=== PATIENT | female | born 2000 | race Two or more races ===

== ENCOUNTER 2018-05-18 17:00 | Emergency (ER) | payer SELFPAY ==
[~2018-05-18] VITALS: Ht 160 cm; Wt 49.9 kg
--- NOTE | 2018-05-18 17:06 | Emergency Room Report ---
History of Present Illness General Chief Complaint: Overdose Source: Patient (Maxwell Viveros DO) Present Illness HPI Patient was brought in by paramedics Reported methamphetamine overdose Patient upon arrival is awake Reports that this has happened to her before and she is somewhat embarrassed Denies any chest pain She was thirsty Denies any headache denies any abdominal pain Patient had some palpitation sensation as well (MariloubraulioMaxwell MIRANDA) Allergies: Coded Allergies: No Known Allergies (Unverified , 05/18/18) Patient History Past Medical History: see triage record Pertinent Family History: none Now: No - Unknown Reviewed Nursing Documentation: PMH: Agreed; PSxH: Agreed (MarilouMaxwell ramsey DO) Nursing Documentation-PMH Past Medical History: No History, Except For History Of Psychiatric Problem: Yes - Schizo, Anxiety, Bipolar, Depression (RupertoMaxwell vargas DO) Review of Systems All Other Systems: negative except mentioned in HPI (MariloubraulioMaxwell MIRANDA) Physical Exam Vital Signs Date Time Temp Pulse Resp B/P (MAP) Pulse Ox O2 Delivery O2 Flow Rate FiO2 05/18/18 16:47 130 20 127/68 98 Room Air Sp02 EP Interpretation: reviewed, normal General Appearance: well appearing, no apparent distress Head: normocephalic, atraumatic Eyes: bilateral eye PERRL, bilateral eye EOMI ENT: normal pharynx, no angioedema Neck: supple Respiratory: lungs clear Cardiovascular #1: no JVD, no murmur, tachycardia Gastrointestinal: non tender, soft Musculoskeletal: normal inspection Neurologic: alert, oriented x3 Skin: normal color, no rash Lymphatic: no adenopathy (MarilouMaxwell ramsey ) Medical Decision Making Diagnostic Impression: Primary Impression: Drug overdose ER Course Patient continues to feel better throughout her stay At this time nausea has improved Patient is awake alert appropriate reports that her sister lives close by Patient allowed to sober and rest further And will have final disposition after further resolution and improvement Labs Test 05/18/18 17:08 05/18/18 17:29 White Blood Count 13.2 K/UL (4.8-10.8) Red Blood Count 3.59 M/UL (4.20-5.40) Hemoglobin 10.6 G/DL (12.0-16.0) Hematocrit 30.6 % (37.0-47.0) Mean Corpuscular Volume 85 FL (80-99) Mean Corpuscular Hemoglobin 29.5 PG (27.0-31.0) Mean Corpuscular Hemoglobin Concent 34.6 G/DL (32.0-36.0) Red Cell Distribution Width 12.1 % (11.6-14.8) Platelet Count 474 K/UL (150-450) Mean Platelet Volume 6.8 FL (6.5-10.1) Neutrophils (%) (Auto) 79.2 % (45.0-75.0) Lymphocytes (%) (Auto) 13.2 % (20.0-45.0) Monocytes (%) (Auto) 5.4 % (1.0-10.0) Eosinophils (%) (Auto) 0.8 % (0.0-3.0) Basophils (%) (Auto) 1.4 % (0.0-2.0) Sodium Level 142 MMOL/L (136-145) Potassium Level 2.9 MMOL/L (3.5-5.1) Chloride Level 103 MMOL/L (98-107) Carbon Dioxide Level 23 MMOL/L (21-32) Anion Gap 16 mmol/L (5-15) Blood Urea Nitrogen 20 mg/dL (7-18) Creatinine 1.1 MG/DL (0.55-1.30) Estimat Glomerular Filtration Rate > 60 mL/min (>60) Glucose Level 100 MG/DL (74-106) Calcium Level 9.8 MG/DL (8.5-10.1) Urine HCG, Qualitative Negative (NEGATIVE) Urine Opiates Screen Negative (NEGATIVE) Urine Barbiturates Screen Negative (NEGATIVE) Phencyclidine (PCP) Screen Negative (NEGATIVE) Urine Amphetamines Screen Positive (NEGATIVE) Urine Benzodiazepines Screen Negative (NEGATIVE) Urine Cocaine Screen Negative (NEGATIVE) Urine Marijuana (THC) Screen Positive (NEGATIVE) (Maxwell Viveros DO) ER Course Patient with a drug overdose. She is more awake now. Able to talk and walk to the bathroom. Sister called to pick her up. (Barrett Melendrez MD) Rhythm Strip Diag. Results EP Interpretation: yes Rate: 105 Rhythm: no PVC's, no ectopy, other - Sinus tach (Maxwell Viveros DO) Last Vital Signs Date Time Temp Pulse Resp B/P (MAP) Pulse Ox O2 Delivery O2 Flow Rate FiO2 05/18/18 16:47 130 20 127/68 98 Room Air Status: improved (Maxwell Viveros DO) Disposition: HOME, SELF-CARE Condition: Stable Additional Instructions: Stop using drugs. Go to rehabilitation. Follow-up with your doctor in 7 days. Return if worse. Maxwell Viveros DO May 18, 2018 17:06 Barrett Melendrez MD May 18, 2018 19:48
[2018-05-18] MEDS ORDERED: LORazepam Inj 2mg/ml 1ml IV ONE (17:15)
[2018-05-18 17:18] VITALS: BP 122/82
[2018-05-18 17:33] LABS: BASOPHILS % (AUTO) 1.4 % (0.0-2.0); EOSINOPHILS % (AUTO) 0.8 % (0.0-3.0); HEMATOCRIT 30.6 % (37.0-47.0); HEMOGLOBIN 10.6 G/DL (12.0-16.0); LYMPHOCYTES % (AUTO) 13.2 % (20.0-45.0); MEAN CORPUSCULAR VOLUME 85 FL (80-99); MONOCYTES % (AUTO) 5.4 % (1.0-10.0); NEUTROPHILS % (AUTO) 79.2 % (45.0-75.0); PLATELET COUNT 474 K/UL (150-450); RED BLOOD COUNT 3.59 M/UL (4.20-5.40); RED CELL DISTRIBUTION WIDTH 12.1 % (11.6-14.8); WHITE BLOOD COUNT 13.2 K/UL (4.8-10.8)
[2018-05-18 17:39] LABS: ANION GAP 16 mmol/L (5-15); BLOOD UREA NITROGEN 20 mg/dL (7-18); CALCIUM 9.8 MG/DL (8.5-10.1); CARBON DIOXIDE 23 MMOL/L (21-32); CHLORIDE 103 MMOL/L (98-107); CREATININE 1.1 MG/DL (0.55-1.30); POTASSIUM 2.9 MMOL/L (3.5-5.1); SODIUM 142 MMOL/L (136-145)
[2018-05-18 18:03] VITALS: BP 95/60
[2018-05-18 18:52] VITALS: BP 113/73
[2018-05-18 20:30] VITALS: BP 119/80
[2018-05-18 21:35] VITALS: BP 113/58
== END 2018-05-18 21:35 | disposition home or self-care (01) ==
LOC: EDBD 17:00 → EMR 18:42
DX: T43.621A Poisoning by amphetamines, accidental (unintentional), initial encounter (principal); Y92.9 Unspecified place or not applicable
CPT/HCPCS: 36415; 80048; 80307; 81025; 85025; 96361; 96374; 96375; 99284; J2405